=== PATIENT | female | born 1990 | race Two or more races ===

== ENCOUNTER 2019-05-13 17:03 | Emergency (ER) | payer MEDICAID ==
[~2019-05-13] VITALS: Ht 154.9 cm; Wt 90.7 kg
--- NOTE | 2019-05-13 17:05 | NUR ---
CALLED PT, NO RESPONSE, PT PHYSICALLY NOT IN WR
[2019-05-13 17:40] VITALS: BP 123/78
[2019-05-13] MEDS ORDERED: IPRATROPIUM NEB FS 0.5 MG/2.5 ML AMPUL.NEB NEB ONE (18:00)
[2019-05-13] MEDS ORDERED: predniSONE 20 MG TABLET PO ONE (18:00)
[2019-05-13] MEDS ORDERED: ALBUTEROL FS 2.5 MG/3 ML VIAL.NEB NEB ONE (18:00)
[2019-05-13] MEDS ORDERED: methylPREDNISolone SOD SUCC 125 MG/2ML VIAL IV ONE (18:00)
[2019-05-13] MEDS ORDERED: methylPREDNISolone SOD SUCC 125 MG/2ML VIAL ONE (18:54)
[2019-05-13] MEDS ORDERED: ALBUTEROL FS 2.5 MG/3 ML VIAL.NEB ONE (19:16)
[2019-05-13] MEDS ORDERED: IPRATROPIUM NEB FS 0.5 MG/2.5 ML AMPUL.NEB ONE (19:16)
--- NOTE | 2019-05-13 19:18 | NUR ---
PT SIGNED WAIVER, LMP 05/12/19. MADE ANAI RIDDLE AWARE
--- NOTE | 2019-05-13 19:20 | NUR ---
RT AT BEDSIDE FOR BREATHING TREATMENT
--- NOTE | 2019-05-13 19:26 | NUR ---
PT RECIVED FROM KAY ALBA FOR JOHANA. RECEIVING BREATHING TX. NAD NOTED.
--- NOTE | 2019-05-13 20:02 | NUR ---
IV removed. Catheter intact and site benign. Pressure and 4x4 applied to site. No bleeding noted. Pt ambulatory with a steady gait. Patient discharged to home in stable condition. Written and verbal after care instructions given. Patient verbalizes understanding of instruction.
== END 2019-05-13 20:05 | disposition home or self-care (01) ==
LOC: ER 17:06
DX: K21.9 Gastro-esophageal reflux disease without esophagitis (principal); J98.01 Acute bronchospasm; F17.210 Nicotine dependence, cigarettes, uncomplicated
CPT/HCPCS: 71045; 94640; 96374; 99283; J2930